=== PATIENT | male | born 1960 | race Two or more races ===

== ENCOUNTER 2020-09-05 11:16 | Emergency (ER) | payer OTHER, SELFPAY ==
[~2020-09-05] VITALS: Ht 175.3 cm; Wt 94.5 kg
[2020-09-05 11:22] VITALS: BP 181/101
--- NOTE | 2020-09-05 11:59 | NUR ---
PA AT BS
[2020-09-05] MEDS ORDERED: KETOROLAC 30 MG/1 ML ONE (12:13)
[2020-09-05] MEDS ORDERED: KETOROLAC 30 MG/1 ML IM ONE (12:30)
== END 2020-09-05 12:37 | disposition home or self-care (01) ==
LOC: ED 12:02
DX: K08.89 Other specified disorders of teeth and supporting structures (principal); I10 Essential (primary) hypertension; E78.00 Pure hypercholesterolemia, unspecified
CPT/HCPCS: 96372; 99283; J1885